=== PATIENT | female | born 1995 | race Two or more races ===

== ENCOUNTER → 2020-12-22 | Day surgery (SDC) | payer OTHER | END | disposition home or self-care (01) | LOC: ADM 12-17 07:15 → CIR.AMB 07:15 | PROVIDERS: ATTEND Specialist | DX: N87.0 Mild cervical dysplasia (principal); N72 Inflammatory disease of cervix uteri; Z20.822 Contact with and (suspected) exposure to COVID-19 ==

== ENCOUNTER 2022-07-22 08:00 | Outpatient (CLI) | payer OTHER | END 2022-07-22 09:15 | disposition home or self-care (01) | LOC: PRENATAL 08:00 | PROVIDERS: ATTEND Obstetrics & Gynecology Maternal & Fetal Medicine | DX: O09.91 Supervision of high risk pregnancy, unspecified, first trimester (principal) ==

== ENCOUNTER → 2024-07-31 14:06 | Outpatient (CLI) | payer OTHER | END | disposition home or self-care (01) | LOC: PRENATAL 14:06 | PROVIDERS: ATTEND Obstetrics & Gynecology Maternal & Fetal Medicine | DX: O44.00 Complete placenta previa NOS or without hemorrhage, unspecified trimester (principal); O34.40 Maternal care for other abnormalities of cervix, unspecified trimester; Z3A.22 22 weeks gestation of pregnancy ==

== ENCOUNTER 2024-10-26 13:13 | Outpatient (CLI) | payer OTHER | END 2024-10-26 13:14 | disposition home or self-care (01) | LOC: PRENATAL 13:13 | PROVIDERS: ATTEND Obstetrics & Gynecology Maternal & Fetal Medicine | DX: O26.849 Uterine size-date discrepancy, unspecified trimester (principal); O36.8199 Decreased fetal movements, unspecified trimester, other fetus; O34.40 Maternal care for other abnormalities of cervix, unspecified trimester; Z3A.34 34 weeks gestation of pregnancy ==

== ENCOUNTER 2024-11-09 20:55 | Inpatient (IN) | payer OTHER ==
[~2024-11-09] VITALS: Ht 157.5 cm; Wt 68.5 kg
[2024-11-09] MEDS ORDERED: RINGERS SOLUTION,LACTATED 1,000 ML IV SCH (21:30)
[2024-11-09] MEDS ORDERED: PRENATAL CAPLE1 EAC1 PO (21:31)
[2024-11-09 21:32] VITALS: BP 99/67
[2024-11-09] MEDS ORDERED: IRON325 MG PO (21:32)
[2024-11-09 21:42] LABS: HEMATOCRIT 35.7 % (36.0-45.00); MEAN CELL VOLUME 85.8 fL (80.00-100.00); MEAN CORPUSCULAR HEMOGLOBIN 28.9 pg (27.00-32.0); MEAN CORPUSCULAR HGB CONC 33.7 g/dl (32.0-36.0); PH,URINE 5.5 (5.0-8.0); PLATELET COUNT 189 K/uL (150-450); RED BLOOD COUNT 4.16 M/uL (4.00-6.00); RED CELL DISTRIBUTION WIDTH 15.5 % (11.5-14.5); URINE APPEARANCE Clear; URINE BILIRRUBIN Negative (NEGATIVE); URINE BLOOD Negative; URINE COLOR Yellow; URINE GLUCOSE Negative (NEGATIVE); URINE LEUKOCYTE Moderate; URINE NITRATE Negative; URINE PROTEIN 30 (NEGATIVE)
[2024-11-09 21:45] LABS: URINE BACTERIA 2423.4 uL (0.0-1933); URINE CAST 1.47 uL (0.0-1.40); URINE EPITHELIAL CELLS 65.5 uL (0.0-38.8); URINE RBC 4.1 uL (0.0-20.8); URINE WBC 126.4 uL (0.0-23.2)
[2024-11-09 21:58] LABS: INR 0.98; PARTIAL THROMBOPLASTIN TIME 25.2 SECONDS (22.0-34.0); PROTHROMBIN TIME 10.7 SECONDS (9.0-11.5)
[2024-11-09 21:59] LABS: URINE KETONE >=160 (NEGATIVE)
[2024-11-09 22:06] LABS: BILIRUBIN TOTAL 0.49 mg/dL (0.3-1.2); CALCIUM 9.1 mg/dL (8.5-10.1); CREATININE SERUM 0.63 mg/dL (0.55-1.02); GFR 110.22; GLOBULINA 4.3 G/DL (2.4-3.5); POTASSIUM 3.99 mEq/L (3.5-5.1); TOTAL PROTEIN 7.3 gm/dL (6.4-8.2)
[2024-11-09] MEDS ORDERED: OXYTOCIN 20 UNITS/500ML RL PIGGYBAG IV ONE (22:10)
[2024-11-09] MEDS ORDERED: OXYTOCIN 500 ML IV ONE (22:30)
[2024-11-09 23:11] VITALS: BP 118/89; O2SAT 100
[2024-11-09] MEDS ORDERED: ERYTHROMYCIN BASE OPHT 1GM EACH TUBE OP ONE (23:17)
[2024-11-09] MEDS ORDERED: LIDOCAINE HCL 1% 10ML VIAL ONE (23:17)
[2024-11-09] MEDS ORDERED: OXYTOCIN 20 UNITS/1000ML RL PIGGYBAG IV ONE (23:17)
[2024-11-09] MEDS ORDERED: CHLORHEXIDINE GLUCONATE 120 ML BOTTLE TOP ONE (23:17)
[2024-11-09] MEDS ORDERED: CHLORHEXIDINE GLUCONATE 120 ML BOTTLE TOP SCH (23:30)
[2024-11-09] MEDS ORDERED: IBUprofen 400 MG TABLET PO PRN (23:30)
[2024-11-09] MEDS ORDERED: OXYTOCIN 1,000 ML IV SCH (23:30)
[2024-11-09 23:48] VITALS: BP 122/65
[2024-11-10] VITALS (10 sets, daily range): BP systolic 98–125; BP diastolic 60–76
[2024-11-10] MEDS ORDERED: LIDOCAINE HCL 1% 10ML VIAL IJ ONE
[2024-11-10] MEDS ORDERED: ERYTHROMYCIN BASE OPHT 1GM EACH TUBE OP ONE
== END 2024-11-11 13:38 | disposition home or self-care (01) | DRG 805 ==
LOC: OB/GYN 20:55 → LDR 20:55 → OB/GYN 23:46
PROVIDERS: Obstetrics & Gynecology; ADMIT Obstetrics & Gynecology; ATTEND Obstetrics & Gynecology
PROC: 10E0XZZ Delivery of Products of Conception, External Approach (ICD-10-PCS; principal; 2024-11-09)
PROC: 0HQ9XZZ Repair Perineum Skin, External Approach (ICD-10-PCS; 2024-11-09)
PROC: 4A1HXCZ Monitoring of Products of Conception, Cardiac Rate, External Approach (ICD-10-PCS; 2024-11-09)
DX: O70.0 First degree perineal laceration during delivery (principal); O60.14X0 Preterm labor third trimester with preterm delivery third trimester, not applicable or unspecified; Z37.0 Single live birth; Z3A.36 36 weeks gestation of pregnancy